=== PATIENT | male | born 2000 | race Caucasian/White ===

== ENCOUNTER 2021-11-12 10:37 | Emergency (ER) | payer OTHER ==
[~2021-11-12] VITALS: Ht 170.2 cm; Wt 61.2 kg
--- NOTE | 2021-11-12 11:11 | NUR ---
at bedside to examine pt.
[2021-11-12] MEDS ORDERED: IBUP-1957 PO (11:24)
[2021-11-12] MEDS ORDERED: CEPH500C2 PO (11:24)
--- NOTE | 2021-11-12 11:33 | NUR ---
Right middle finger dressed as ordered. patient instructed by Md. to come back for follow up in 2 days. prescription reviewed with pt. Left room AAOx4. pain well controlled 06/26 as stated with no need of medications.
== END 2021-11-12 11:39 | disposition home or self-care (01) ==
LOC: ER 10:42
DX: S61.212A Laceration without foreign body of right middle finger without damage to nail, initial encounter (principal); W26.0XXA Contact with knife, initial encounter; Y93.G1 Activity, food preparation and clean up; Y92.511 Restaurant or cafe as the place of occurrence of the external cause; Y99.0 Civilian activity done for income or pay
CPT/HCPCS: A4663

== ENCOUNTER 2021-11-14 17:54 | Emergency (ER) | payer OTHER ==
[~2021-11-14] VITALS: Ht 167.6 cm; Wt 59.0 kg
[~2021-11-14 17:54] MED LIST: CEPH500C2 PO; IBUP-1957 PO
[2021-11-14] MEDS ORDERED: ESTR0.5T PO (18:09)
[2021-11-14] MEDS ORDERED: BICA50TA49 PO (18:09)
--- NOTE | 2021-11-14 20:00 | NUR ---
Patient waqs called in the waiting for re eval for vital due to patient placed back in waiting room after being triaged but was not present. Patient was traiged but was not seen by ERMD.
== END 2021-11-14 20:00 | disposition left against medical advice (07) ==
LOC: ER 17:54
DX: Z53.21 Procedure and treatment not carried out due to patient leaving prior to being seen by health care provider (principal)